=== PATIENT | male | born 2000 | race Caucasian/White ===

== ENCOUNTER 2022-10-23 20:20 | Emergency (ER) | payer BC ==
[2022-10-23 21:00] LABS: BASOPHILS ABSOLUTE AUTO 0.03 K/uL (0.02-0.10); BASOPHILS PERCENT AUTO 0.3 % (0.0-0.5); EOSINOPHILS ABSOLUTE AUTO 0.01 K/uL (0.04-0.40); EOSINOPHILS PERCENT AUTO 0.1 % (1.0-5.0); HEMATOCRIT 46.3 % (40.0-54.0); HEMOGLOBIN 16.1 g/dL (13.0-18.0); LYMPHOCYTES ABSOLUTE AUTO 1.58 K/uL (1.50-4.00); LYMPHOCYTES PERCENT AUTO 15.5 % (20.0-40.0); MEAN CORPUSCULAR HEMOGLOBIN 30.4 pg (27.0-32.0); MEAN CORPUSCULAR HGB CONC 34.8 g/dL (31.0-35.0); MEAN CORPUSCULAR VOLUME 87 fL (76-96); MEAN PLATELET VOLUME 9.8 fL (6.0-10.0); MONOCYTES ABSOLUTE AUTO 1.74 K/uL (0.20-0.80); MONOCYTES PERCENT AUTO 17.1 % (3.0-10.0); NEUTROPHILS ABSOLUTE AUTO 6.83 K/uL (2.00-7.50); PLATELET COUNT,PLT 158 K/uL (150-400); RED CELL DISTRIBUTION WIDTH 12.6 % (11.0-16.0); WHITE BLOOD CELL COUNT,WBC 10.2 K/uL (4.0-11.0)
== END 2022-10-23 21:16 | disposition home or self-care (01) ==
LOC: LB.ED 20:20
DX: B34.9 Viral infection, unspecified (principal)
CPT/HCPCS: 36415; 85025; 86308; 87430; 99283